=== PATIENT | female | born 1945 | race African-American/Black ===

== ENCOUNTER 2018-04-11 11:25 | Emergency (ER) | payer MEDICARE, MEDICAID ==
[~2018-04-11] VITALS: Ht 170.2 cm; Wt 72.6 kg
[2018-04-11 12:10] VITALS: BP 133/85
[2018-04-11] MEDS ORDERED: DiphenhydrAMINE 50mg/ml Inj IM ONE (12:15)
[2018-04-11] MEDS ORDERED: DIPHENHYDRAMINE25 M1 ORAL (12:29)
[2018-04-11 12:53] VITALS: BP 127/81
--- NOTE | 2018-04-11 14:43 | Emergency Room Report ---
History of Present Illness General Chief Complaint: Allergic Reaction Source: Patient Present Illness HPI 73-year-old female presents to ED with lip swelling, rash times one day. Daughter at bedside states that they noticed symptoms this morning. Patient denies any tongue swelling or throat tightness. Denies any shortness of breath. Denies any known food allergies. States she is allergic to penicillin and prednisone. Denies sick contacts or recent travel. No other aggravating relieving factors. Denies any other associated symptoms Allergies: Coded Allergies: Dust (Verified Allergy, Unknown, 04/11/18) PENICILLINS (Verified Allergy, Unknown, 04/11/18) PREDNISONE (Verified Allergy, Unknown, 04/11/18) Patient History Past Medical History: DM, HTN, CVA/TIA Past Surgical History: none Pertinent Family History: none Social History: Denies: smoking, alcohol use, drug use Now: No Immunizations: UTD Reviewed Nursing Documentation: PMH: Agreed; PSxH: Agreed Nursing Documentation-PMH Past Medical History: No History, Except For Hx Hypertension: Yes Hx Diabetes: Yes Hx Cerebrovascular Accident: Yes Review of Systems All Other Systems: negative except mentioned in HPI Physical Exam Vital Signs Date Time Temp Pulse Resp B/P (MAP) Pulse Ox O2 Delivery O2 Flow Rate FiO2 04/11/18 11:37 98.2 88 20 133/85 100 Room Air 98.2 Sp02 EP Interpretation: reviewed, normal General Appearance: no apparent distress, alert, GCS 15, non-toxic Head: normocephalic, atraumatic Eyes: bilateral eye normal inspection, bilateral eye PERRL ENT: hearing grossly normal, normal pharynx, no angioedema, normal voice, other - lower lip swelling Neck: full range of motion, supple/symm/no masses Respiratory: chest non-tender, lungs clear, normal breath sounds, speaking full sentences Cardiovascular #1: regular rate, rhythm, no edema Cardiovascular #2: 2+ carotid (R), 2+ carotid (L), 2+ radial (R), 2+ radial (L) , 2+ dorsalis pedis (R), 2+ dorsalis pedis (L) Gastrointestinal: normal bowel sounds, non tender, soft, non-distended, no guarding, no rebound Rectal: deferred Genitourinary: normal inspection, no CVA tenderness Musculoskeletal: back normal, gait/station normal, normal range of motion, non- tender Neurologic: alert, oriented x3, responsive, motor strength/tone normal, sensory intact, speech normal Psychiatric: judgement/insight normal, memory normal, mood/affect normal, no suicidal/homicidal ideation Reflexes: 3+ bicep (R), 3+ bicep (L), 3+ tricep (R), 3+ tricep (L), 3+ knee (R) , 3+ knee (L) Skin: normal color, no rash, warm/dry, well hydrated, rash - urticaria to bilateral upper extermities Lymphatic: no adenopathy Medical Decision Making Diagnostic Impression: Primary Impression: Allergic reaction Qualified Codes: T78.40XA - Allergy, unspecified, initial encounter ER Course Hospital Course 73 yo F presents c/o lip swelling, rash Differential diagnoses include: allergic reaction, angioedema, anaphylaxis Clinical course Patient placed on stretcher. school lunch monitor. After initial history, exam reveals an elderly female in no acute distress. There is some lower lip swelling and urticarial rash to the upper extremities. No tongue swelling or stridor. Lungs clear. Vital stable. Cussed findings with patient, daughter. Patient given Benadryl IM here. Patient cannot take prednisone. Patient currently taking famotidine and encouraged to continue that as it has antihistamine properties. Unclear the source of the allergic reaction but recommend close follow-up with PMD i. I feel this is a highly complex case requiring extensive working including EKG/Rhythm strip, Xray/CT/US, Blood/urine lab work, repeat exams while in ED, and administration of strong opiates/narcotics for pain control, admission to hospital or close patient follow up. Diagnosis - allergic reaction Stable and discharged to home with prescriptions for Benadryl. Followup with PMD. Return to ED if symptoms recur or worsen Last Vital Signs Date Time Temp Pulse Resp B/P (MAP) Pulse Ox O2 Delivery O2 Flow Rate FiO2 04/11/18 12:53 98.4 80 16 127/81 99 Room Air 98.4 Status: improved Disposition: HOME, SELF-CARE Condition: Stable Scripts Diphenhydramine Hcl* (DIPHENHYDRAMINE HCL*) 25 Mg Capsule 25 MG ORAL Q6H PRN for Itching for 5 Days, #30 CAP 0 Refills Prov: Silvestre Botello MD 04/11/18 Referrals: NON PHYSICIAN (PCP) Patient Instructions: Drug Allergy Silvestre Botello MD Apr 11, 2018 14:43
== END 2018-04-11 12:53 | disposition home or self-care (01) ==
LOC: EMR 12:30
DX: T78.40XA Allergy, unspecified, initial encounter (principal); X58.XXXA Exposure to other specified factors, initial encounter; Y92.9 Unspecified place or not applicable; E11.9 Type 2 diabetes mellitus without complications; I10 Essential (primary) hypertension; Z86.73 Personal history of transient ischemic attack (TIA), and cerebral infarction without residual deficits; Z88.0 Allergy status to penicillin; Z88.8 Allergy status to other drugs, medicaments and biological substances
CPT/HCPCS: 96372; 99283; J1200